=== PATIENT | female | born 1995 | race Caucasian/White ===

== ENCOUNTER 2021-10-20 10:23 | Emergency (ER) | payer BC, OTHER ==
[2021-10-20] MEDS ORDERED: diphenhydrAMINE 50 MG CAP ONE (11:06)
[2021-10-20 11:49] LABS: ALT (SGPT) 15 U/L (8-55); AST (SGOT) 18 U/L (5-34); Albumin 3.8 g/dL (3.5-5.0); Alkaline Phosphatase 64 U/L (40-110); Anion Gap 11 mmol/L (10-20); BUN (Urea Nitrogen) 7 mg/dL (7.0-18.7); Bilirubin, Total 0.5 mg/dL (0.2-1.2); Calc. Creatinine Clearance 0 mL/min (70-130); Calcium 9.7 mg/dL (7.8-10.44); Carbon Dioxide 24 mmol/L (22-29); Chloride 103 mmol/L (98-107); Globulin 2.7 g/dL (2.4-3.5); Glucose 102 mg/dL (70-105); Potassium 3.9 mmol/L (3.5-5.1); Protein, Total 6.5 g/dL (6.0-8.3); Sodium 134 mmol/L (136-145)
[2021-10-20 11:57] LABS: #Monocytes 0.4 10x3/uL (0.0-1.1); #Neutrophils 7.6 10x3/uL (1.5-8.4); %Basophils 0.1 % (0.0-2.0); %Lymphocytes 9.5 % (18.0-47.0); %Monocytes 4.5 % (0.0-10.0); %Neutrophils 85.6 % (40.0-75.0); Hemoglobin 14.5 g/dL (12.0-15.5); Mean Corpuscular HGB CONC 35.4 g/dL (32.0-36.0); Mean Corpuscular Hemoglobin 31.7 pg (27.0-33.0); Mean Corpuscular Volume 89.7 fl (81.6-98.3); Mean Platelet Volume 11.3 fl (7.4-10.4); Platelet Count 181 10x3/uL (150-450); Red Blood Cell (RBC) Count 4.57 10x6/uL (3.90-5.03); White Blood Cell (WBC) Count 8.9 10x3/uL (3.5-10.5)
== END 2021-10-20 12:58 | disposition home or self-care (01) ==
LOC: CSHERS 10:23
DX: O99.711 Diseases of the skin and subcutaneous tissue complicating pregnancy, first trimester (principal); O99.281 Endocrine, nutritional and metabolic diseases complicating pregnancy, first trimester; E05.90 Thyrotoxicosis, unspecified without thyrotoxic crisis or storm; L50.9 Urticaria, unspecified; Z3A.12 12 weeks gestation of pregnancy; Z79.899 Other long term (current) drug therapy
CPT/HCPCS: 36415; 80053; 85025; 99283

== ENCOUNTER 2022-04-25 05:30 | Inpatient (IN) | payer OTHER ==
[2022-04-25 12:35] VITALS: BMI 26.4
[2022-04-25] MEDS ORDERED: Lidocaine 1% (PF) 30 ML VIAL SC PRN (12:44)
[2022-04-25] MEDS ORDERED: Promethazine HCl 25 MG/ML VIAL IM PRN ×2 (12:44→20:55)
[2022-04-25] MEDS ORDERED: hydrALAZINE 20 MG/ML VIAL SLOW IVP PRN (12:44)
[2022-04-25] MEDS ORDERED: Ondansetron PF 4 MG/2 ML Vial IVP PRN ×2 (12:44→20:55)
[2022-04-25] MEDS ORDERED: Ibuprofen 800 MG TAB PO PRN (12:44)
[2022-04-25] MEDS ORDERED: Acetaminophen 500 MG TAB PO PRN (12:44)
[2022-04-25] MEDS ORDERED: HYDROcodone/Acetaminophen 5/325 mg Tablet PO PRN (12:44)
[2022-04-25] MEDS ORDERED: Butorphanol Tartrate 1 MG/ML VIAL SLOW IVP PRN (12:44)
[2022-04-25] MEDS ORDERED: Lactated Ringer's 1,000 ML IV SCH (12:45)
[2022-04-25] MEDS ORDERED: NS w/ Oxytocin 30 units 500 ML IV SCH ×2 (12:45)
[2022-04-25 12:59] LABS: Hemoglobin 10.5 g/dL (12.0-15.5); Mean Corpuscular HGB CONC 33.4 g/dL (32.0-36.0); Mean Corpuscular Hemoglobin 28.7 pg (27.0-33.0); Mean Corpuscular Volume 85.8 fl (81.6-98.3); Mean Platelet Volume 12.4 fl (7.4-10.4); Platelet Count 174 10x3/uL (150-450); RBC Distribution Width 12.4 % (11.5-14.5); Red Blood Cell (RBC) Count 3.66 10x6/uL (3.90-5.03); White Blood Cell (WBC) Count 5.8 10x3/uL (3.5-10.5)
[2022-04-25 13:22] LABS: ALT (SGPT) 57 U/L (8-55); AST (SGOT) 53 U/L (5-34); Albumin 3.3 g/dL (3.5-5.0); Alkaline Phosphatase 301 U/L (40-110); Anion Gap 13 mmol/L (10-20); BUN (Urea Nitrogen) 6 mg/dL (7.0-18.7); Calc. Creatinine Clearance 149 mL/min (70-130); Calcium 8.8 mg/dL (7.8-10.44); Carbon Dioxide 19 mmol/L (22-29); Chloride 108 mmol/L (98-107); Estimated GFR 128; Globulin 2.6 g/dL (2.4-3.5); Glucose 99 mg/dL (70-105); Potassium 3.8 mmol/L (3.5-5.1); Protein, Total 5.9 g/dL (6.0-8.3); Sodium 136 mmol/L (136-145)
[2022-04-25 13:41] LABS: HBSAg Index 0.19 S/CO (0-0.99); Hep B Surf Ag Non-Reactive S/CO (NonReactive)
[2022-04-25 13:42] LABS: Syphilis Antibody Nonreactive (Nonreactive); Syphilis Antibody Index 0.03 S/CO (<1.00 Non-Reactive)
[2022-04-25 15:21] LABS: SARS-CoV-2 NAA Rapid Test Not Detected (NotDetected)
[2022-04-25] MEDS ORDERED: Bupivacaine 0.25% HCL 30 ML VIAL ONE (16:48)
[2022-04-25] MEDS ORDERED: ePHEDrine Sulfate 50 MG/10 ML VIAL ONE (16:48)
[2022-04-25] MEDS ORDERED: Fentanyl 2 mcg/Bup 0.1% Cadd 100 ML ONE (20:00)
[2022-04-25] MEDS ORDERED: Moisturizing Cream (Eucerin) 113 GM JAR TOP PRN (20:55)
[2022-04-25] MEDS ORDERED: Acetaminophen 325 MG TAB PO PRN (20:55)
[2022-04-25] MEDS ORDERED: Lactated Ringer's 500 ML IV PRN (20:55)
[2022-04-25] MEDS ORDERED: ePHEDrine Sulfate 50 MG/10 ML VIAL SLOW IVP PRN (20:55)
[2022-04-25] MEDS ORDERED: Naloxone HCl 0.4 mg/ml Vial IVP PRN ×2 (20:55)
[2022-04-25] MEDS ORDERED: diphenhydrAMINE 50 MG/ML VIAL IVP PRN (20:55)
[2022-04-25] MEDS ORDERED: Communication Order-Pharmacy FS SCH (21:00)
[2022-04-25] MEDS ORDERED: Fentanyl 2 mcg/Bupivacaine 0.1% Cassette 100 ML EPIDURAL SCH (21:00)
[2022-04-26] MEDS ORDERED: hydrALAZINE 20 MG/ML VIAL SLOW IVP PRN (03:55)
[2022-04-26] MEDS ORDERED: Bisacodyl 10 MG SUPP PR PRN (03:55)
[2022-04-26] MEDS ORDERED: Boostrix 0.5 ML (Tdap) VIAL (>/=7 yrs of age) IM ONE (03:55)
[2022-04-26] MEDS ORDERED: Milk Of Magnesia 30 ML UDCUP PO PRN (03:55)
[2022-04-26] MEDS: Ibuprofen 800 MG TAB PO SCH ×3 (05:23→22:04)
[2022-04-26] MEDS: Ferrous Sulfate 325 MG TAB PO SCH ×2 (07:29→15:35)
[2022-04-26] MEDS: Docusate 100 MG CAP PO SCH ×2 (08:25→22:04)
[2022-04-26] MEDS: Prenatal Vitamin 1 TAB PO SCH (08:25)
[2022-04-27] MEDS: Ibuprofen 800 MG TAB PO SCH (05:15)
[2022-04-27 05:44] LABS: #Monocytes 0.5 10x3/uL (0.0-1.1); #Neutrophils 5.6 10x3/uL (1.5-8.4); %Basophils 0.2 % (0.0-2.0); %Eosinophils 0.2 % (0.0-6.0); %Lymphocytes 26.4 % (18.0-47.0); %Monocytes 5.5 % (0.0-10.0); %Neutrophils 67.2 % (40.0-75.0); Hemoglobin 9.9 g/dL (12.0-15.5); Mean Corpuscular HGB CONC 33.3 g/dL (32.0-36.0); Mean Corpuscular Volume 87.1 fl (81.6-98.3); Mean Platelet Volume 12.4 fl (7.4-10.4); Platelet Count 172 10x3/uL (150-450); RBC Distribution Width 12.8 % (11.5-14.5); Red Blood Cell (RBC) Count 3.41 10x6/uL (3.90-5.03); White Blood Cell (WBC) Count 8.3 10x3/uL (3.5-10.5)
[2022-04-27] MEDS: Prenatal Vitamin 1 TAB PO SCH (08:50)
[2022-04-27] MEDS: Docusate 100 MG CAP PO SCH (08:51)
[2022-04-27] MEDS: Ferrous Sulfate 325 MG TAB PO SCH (08:51)
[2022-04-27 09:29] VITALS: BP 110/70; TEMP 98.2
[2022-04-27] MEDS ORDERED: Benzocaine-Menthol 82.5 ML CAN TOP PRN (09:32)
== END 2022-04-27 11:50 | disposition home or self-care (01) | DRG 805 ==
LOC: CSHLD 11:41 → CSHPED 04-26 03:43
PROVIDERS: ADMIT Student in an Organized Health Care Education/Training Program; ATTEND Student in an Organized Health Care Education/Training Program
PROC: 10E0XZZ Delivery of Products of Conception, External Approach (ICD-10-PCS; principal; 2022-04-26)
DX: O26.62 Liver and biliary tract disorders in childbirth (principal); K83.1 Obstruction of bile duct; Z37.0 Single live birth; Z3A.38 38 weeks gestation of pregnancy; Z88.0 Allergy status to penicillin; Z20.822 Contact with and (suspected) exposure to COVID-19
CPT/HCPCS: 51702; 80053; 85025; 85027; 86780; 86850; 86900; 86901; 87340; J0595; J2590; S0020; U0002